=== PATIENT | female | born 1975 | race African-American/Black ===

== ENCOUNTER 2023-09-20 17:17 | Emergency (ER) | payer MEDICAID, MEDICARE ==
[~2023-09-20] VITALS: Ht 167.6 cm; Wt 75.0 kg
[~2023-09-20 17:17] MED LIST: NOCURR
[2023-09-20] MEDS ORDERED: AMOX TR/POT CLAV 875 MG/125 MG TABLET PO ONE (18:30)
[2023-09-20] MEDS ORDERED: ACETAMINOPHEN 500 MG TABLET PO ONE (18:30)
[2023-09-20 19:22] VITALS: BP 137/92; PULSE 77; RESP 22
[2023-09-20] MEDS ORDERED: AMOX1TAB16 PO (20:02)
[2023-09-20 20:09] VITALS: TEMP 98.8
== END 2023-09-20 20:12 | disposition home or self-care (01) ==
LOC: EMS 17:18
DX: K04.7 Periapical abscess without sinus (principal); R04.0 Epistaxis; H66.91 Otitis media, unspecified, right ear; F17.210 Nicotine dependence, cigarettes, uncomplicated
CPT/HCPCS: 99283